=== PATIENT | female | born 1975 | race African-American/Black ===

== ENCOUNTER 2017-01-18 10:38 | Emergency (ER) | payer BC, OTHER ==
[2017-01-18] MEDS ORDERED: DIAZEPAM 5 MG TABLET PO ONE (11:40)
--- NOTE | 2017-01-18 11:41 | ER Document Report ---
ED Medical Screen (RME) - General Chief Complaint: Jaw Pain Stated Complaint: MOUTH PAIN Notes: 41-year-old female patient yawned this morning and dislocated the left TMJ. Last time this happened was about 2 years ago. She was seen here in 2011 for the same thing. I have greeted and performed a rapid initial assessment of this patient. A comprehensive ED assessment and evaluation of the patient, analysis of test results and completion of the medical decision making process will be conducted by additional ED providers. TRAVEL OUTSIDE OF THE [place] IN LAST 30 DAYS: No - Related Data Allergies/Adverse Reactions: No Known Allergies Allergy (Verified 01/18/17 11:09) Home Medications: Current Home Medications Ergocalciferol (Vitamin D2) [Vitamin D2] 50,000 unit PO Q7D 01/18/17 [History] Omeprazole [Omeprazole] 40 mg PO DAILY 01/18/17 [History] Past Medical History - Past Medical History Cardiac Medical History: Reports: Hx Hypertension Renal/ Medical History: Denies: Hx Peritoneal Dialysis - Immunizations Hx Diphtheria, Pertussis, Tetanus Vaccination: Yes Physical Exam - Vital signs Vitals: Temp Pulse Resp BP Pulse Ox 98.8 F 97 18 159/93 H 99 01/18/17 11:11 01/18/17 11:11 01/18/17 11:11 01/18/17 11:11 01/18/17 11:11 Course - Vital Signs Vital signs: Temp Pulse Resp BP Pulse Ox 98.8 F 97 18 159/93 H 99 01/18/17 11:11 01/18/17 11:11 01/18/17 11:11 01/18/17 11:11 01/18/17 11:11
--- NOTE | 2017-01-18 12:21 | ER Document Report ---
ED Oral Problem - General Chief Complaint: Jaw Pain Stated Complaint: MOUTH PAIN Mode of Arrival: Ambulatory Information source: Patient TRAVEL OUTSIDE OF THE [place] IN LAST 30 DAYS: No - HPI Patient complains to provider of: Jaw pain Onset: This morning Associated symptoms: denies: Chills, Fever, Tongue swelling, Unable to swallow Worsened by: Other - Movement Relieved by: Nothing Similar symptoms previously: Yes Notes: Patient arrives with complaints of possible jaw dislocation. She yawned at work around 9 AM in the left side of her jaw popped out and she was unable to close her mouth. She states that she's had this happen to her in the past. She denies any traumatic injury. She denies any fever. She denies difficulty breathing or swallowing. She denies any nausea, vomiting, diarrhea. No rash. She denies any unilateral numbness tingling or weakness. No blood thinners, no other complaints at this time. - Related Data Allergies/Adverse Reactions: No Known Allergies Allergy (Verified 01/18/17 11:09) Home Medications: Current Home Medications Ergocalciferol (Vitamin D2) [Vitamin D2] 50,000 unit PO Q7D 01/18/17 [History] Omeprazole [Omeprazole] 40 mg PO DAILY 01/18/17 [History] Past Medical History - Social History Smoking Status: Unknown if Ever Smoked Family History: Reviewed & Not Pertinent Patient has suicidal ideation: No Patient has homicidal ideation: No - Past Medical History Cardiac Medical History: Reports: Hx Hypertension Renal/ Medical History: Denies: Hx Peritoneal Dialysis - Immunizations Hx Diphtheria, Pertussis, Tetanus Vaccination: Yes Review of Systems - Review of Systems -: Yes All other systems reviewed and negative Physical Exam - Vital signs Vitals: Temp Pulse Resp BP Pulse Ox 98.8 F 97 18 159/93 H 99 01/18/17 11:11 01/18/17 11:11 01/18/17 11:11 01/18/17 11:11 01/18/17 11:11 - General General appearance: Appears well, Alert - HEENT Head: Normocephalic, Atraumatic Eyes: Normal Ears: Normal Mouth/Lips: Other - Patient has an obvious mandibular dislocation on the left. Has mild tenderness to palpation over this area. Unable to fully close her mouth. Remainder of her exam is unremarkable. - Respiratory Respiratory status: No respiratory distress Breath sounds: Normal - Cardiovascular Rhythm: Regular Heart sounds: Normal auscultation Murmur: No - Extremities General upper extremity: Normal inspection, Nontender, Normal color, Normal ROM , Normal temperature General lower extremity: Normal inspection, Nontender, Normal color, Normal ROM , Normal temperature, Normal weight bearing. No: Nereyda's sign - Neurological Neuro grossly intact: Yes Cognition: Normal Orientation: AAOx4 Daphney Coma Scale Eye Opening: Spontaneous [place] Coma Scale Verbal: Oriented [place] Coma Scale Motor: Obeys Commands [place] Coma Scale Total: 15 Speech: Normal Motor strength normal: LUE, RUE, LLE, RLE Sensory: Normal - Psychological Associated symptoms: Normal affect, Normal mood - Skin Skin Temperature: Warm Skin Moisture: Dry Skin Color: Normal Course - Re-evaluation Re-evalutation: 01/18/17 12:20 Patient's nontoxic appearing with stable vitals. The patient yawned at work around 9 AM and dislocated the left TMJ. There is no trauma. Was able to reduce the TMJ dislocation using the syringe method with a 10 mL syringe. Patient down on a 10 mL syringe and rolled the syringe between her teeth and the dislocation was reduced. The patient then had full range of motion of the jaw. I urged her to avoid yawning or opening her mouth largely for the next several weeks. Follow-up for increased pain, fever, difficulty breathing or swallowing, or any further concerns. The patient is noted to have elevated blood pressure during today's emergency department visit. The patient was informed of this finding. The patient was instructed that this may be related to pre-hypertension and requires further evaluation with a primary care provider. The patient has no hypertensive symptoms at this time. The patient's emergency department workup and current diagnosis were explained to the patient and or family. Follow-up instructions were provided. Medications if prescribed were discussed. Instructions for when to return to the emergency department including specific worrisome symptoms were discussed with the patient and/or family. - Vital Signs Vital signs: Temp Pulse Resp BP Pulse Ox 98.8 F 97 18 159/93 H 99 01/18/17 11:11 01/18/17 11:11 01/18/17 11:11 01/18/17 11:11 01/18/17 11:11 Procedures - Joint Reduction/Fracture Care left TMJ Consent obtained: Yes Reduction attempts: 1 Complications: No Notes: 01/18/17 12:21 Left TMJ dislocation reduced using a syringe method. The patient hit down on a 10 mL syringe and rolled the syringe between her teeth, this caused spontaneous reduction of the dislocation. The patient in full range of motion of the jaw post reduction. No pain. No Occasions. Discharge - Discharge Clinical Impression: Closed dislocation of jaw Qualifiers: Encounter type: initial encounter Qualified Code(s): S03.00XA - Dislocation of jaw, unspecified side, initial encounter Disposition: HOME, SELF-CARE Instructions: Jaw Dislocation ([facility]) Additional Instructions: Take medications as needed. Apply ice to sore area. Avoid yawning or opening her mouth wide to eat something for the next several weeks. Follow-up for increased pain, fever, swelling, difficulty breathing or swallowing, or any further concerns. Your blood pressure was elevated during today's visit. Have this rechecked with your doctor. Prescriptions: Diclofenac Sodium [Voltaren] 75 mg PO BID #20 tablet.dr Forms: Elevated Blood Pressure
[2017-01-18 12:43] VITALS: BP 148/101
== END 2017-01-18 12:34 | disposition home or self-care (01) ==
LOC: ER 10:38
PROC: 0RSDXZZ Reposition Left Temporomandibular Joint, External Approach (ICD-10-PCS; principal; 2017-01-18)
DX: S03.02XA Dislocation of jaw, left side, initial encounter (principal); X58.XXXA Exposure to other specified factors, initial encounter; Y93.89 Activity, other specified; Y99.0 Civilian activity done for income or pay; I10 Essential (primary) hypertension
CPT/HCPCS: 99283

== ENCOUNTER 2017-04-27 13:21 | Emergency (ER) | payer OTHER ==
[2017-04-27] MEDS ORDERED: IBUPROFEN 800 MG TABLET PO ONE (13:59)
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
[2017-04-27 15:53] VITALS: BP 158/93
== END 2017-04-27 15:05 | disposition home or self-care (01) ==
LOC: ER 13:21
DX: S16.1XXA Strain of muscle, fascia and tendon at neck level, initial encounter (principal); M79.1 Myalgia; M54.2 Cervicalgia; V87.7XXA Person injured in collision between other specified motor vehicles (traffic), initial encounter; Z87.891 Personal history of nicotine dependence
CPT/HCPCS: 72125; 99283

== ENCOUNTER 2017-12-09 06:30 | Emergency (ER) | payer OTHER ==
[2017-12-09 07:42] LABS: ABSOLUTE BASOPHILS # (AUTO) 0.1 10^3/uL (0.0-0.2); ABSOLUTE EOSINOPHILS # (AUTO) 0.2 10^3/uL (0.0-0.6); ABSOLUTE LYMPHOCYTES (AUTO) 2.5 10^3/uL (0.5-4.7); ABSOLUTE MONOCYTES (AUTO) 0.4 10^3/uL (0.1-1.4); ABSOLUTE NEUT (AUTO) 3.8 10^3/uL (1.7-8.2); BASOPHILS % (AUTO) 0.9 % (0-2); EOSINOPHILS % (AUTO) 2.5 % (0-6); HEMATOCRIT 37.4 % (36.0-47.0); HEMOGLOBIN 12.6 g/dL (12.0-15.5); LYMPHOCYTES % (AUTO) 35.6 % (13-45); MEAN CORPUSCULAR HEMOGLOBIN 30.3 pg (27.0-33.4); MEAN CORPUSCULAR HGB CONC 33.7 g/dL (32.0-36.0); MEAN CORPUSCULAR VOLUME 90 fl (80-97); MONOCYTES % (AUTO) 6.2 % (3-13); PLATELET COUNT 293 10^3/uL (150-450); RED BLOOD COUNT 4.15 10^6/uL (3.72-5.28); RED CELL DISTRIBUTION WIDTH 13.8 % (11.5-14.0); SEGMENTED NEUTROPHILS % (AUTO) 54.8 % (42-78); TOTAL CELLS COUNTED % (AUTO) 100 %
[2017-12-09 07:43] LABS: APPEARANCE,URINE CLOUDY; BILIRUBIN,URINE NEGATIVE (NEGATIVE); COLOR,URINE YELLOW; GLUCOSE, URINE NEGATIVE (NEGATIVE); KETONES,URINE NEGATIVE (NEGATIVE); LEUKOCYTE ESTERASE,URINE MODERATE (NEGATIVE); NITRITE,URINE NEGATIVE (NEGATIVE); PROTEIN,URINE NEGATIVE (NEGATIVE); URINE SPECIFIC GRAVITY 1.029
[2017-12-09] MEDS ORDERED: KETOROLAC TROMETHAMINE INJ/PF 30 MG/1 ML SDV IV PRN (07:45)
--- NOTE | 2017-12-09 07:45 | ER Document Report ---
ED General - General Chief Complaint: Abdominal Pain Stated Complaint: FLANK PAIN Time Seen by Provider: 12/09/17 06:35 Notes: 42-year-old female to emergency department complaining of right lower quadrant abdominal pain and bloating. Patient states that she has "fibroids". Had a embolectomy done in 2016 for a large fibroid that was reportedly "under her breast". States that over the last several days she has had increased abdominal swelling, bloating and pain in the abdomen. Pain is mostly sharp in the right lower quadrant. Had a normal bowel movement this morning. No nausea. No vomiting. No fever. No loss of appetite. No weight loss. No significant weight gain. Any pain in the legs. No pain in the eyes, ears nose , throat, chest. No difficulty breathing. No other associated signs or symptoms at this time. TRAVEL OUTSIDE OF THE [place] IN LAST 30 DAYS: No - HPI Onset/Duration: Gradual Severity: Moderate Pain Level: 2 Associated symptoms: None - Related Data Allergies/Adverse Reactions: No Known Allergies Allergy (Verified 04/27/17 14:41) Past Medical History - General Information source: Patient - Social History Smoking Status: Never Smoker Cigarette use (# per day): No Frequency of alcohol use: Occasional Drug Abuse: None Lives with: Family Family History: Arthritis, CAD, CVA, DM, Hyperlipidemia, Hypertension, Malignancy, Thyroid Disfunction Patient has suicidal ideation: No Patient has homicidal ideation: No - Past Medical History Cardiac Medical History: Reports: Hx Hypertension Renal/ Medical History: Denies: Hx Peritoneal Dialysis Musculoskeltal Medical History: Reports Hx Arthritis, Reports Hx Musculoskeletal Trauma Past Surgical History: Reports: Hx Abdominal Surgery - embolization of abdominal fibroid - Immunizations Immunizations up to date: Yes Hx Diphtheria, Pertussis, Tetanus Vaccination: Yes Review of Systems - Review of Systems Constitutional: denies: Chills, Diaphoresis, Fever, Malaise EENT: denies: Double vision, Ear pain, Nose pain, Difficulty swallowing, Throat swelling Cardiovascular: denies: Chest pain, Palpitations, Heart racing Respiratory: denies: Cough, Hurts to breathe, Short of breath, Wheezing Gastrointestinal: Abdominal pain. denies: Diarrhea, Nausea, Vomiting, Constipation Genitourinary: Flank pain. denies: Burning, Dysuria, Discharge Female Genitourinary: denies: , Vaginal discharge, Vaginal bleeding Musculoskeletal: denies: Back pain, Gout, Joint pain Skin: denies: Lesions, Rash Hematologic/Lymphatic: denies: Anemia, Blood clots, Easy bleeding, Easy bruising Neurological/Psychological: denies: Depression, Anxiety, Weakness, Lost consciousness, Headaches, Numbness Physical Exam - Vital signs Vitals: Temp Pulse Resp BP Pulse Ox 98.3 F 89 18 173/101 H 99 12/09/17 06:37 12/09/17 06:37 12/09/17 06:37 12/09/17 06:37 12/09/17 06:37 Interpretation: Normal - General General appearance: Appears well, Alert - HEENT Head: Normocephalic, Atraumatic Eyes: Normal Pupils: PERRL - Respiratory Respiratory status: No respiratory distress Chest status: Nontender Breath sounds: Normal Chest palpation: Normal - Cardiovascular Rhythm: Regular Heart sounds: Normal auscultation Murmur: No - Abdominal Inspection: Normal Distension: Distended, Other - She does have quite distended abdomen. Uncertain whether this is her baseline or not. Bowel sounds: Normal Tenderness: Tender, Other - Tenderness noted in the right lower quadrant. Organomegaly: No organomegaly - Back Back: Normal, Nontender - Extremities General upper extremity: Normal inspection, Nontender, Normal color, Normal ROM , Normal temperature General lower extremity: Normal inspection, Nontender, Normal color, Normal ROM , Normal temperature, Normal weight bearing. No: Nereyda's sign - Neurological Neuro grossly intact: Yes Cognition: Normal Orientation: AAOx4 Holliday Coma Scale Eye Opening: Spontaneous Holliday Coma Scale Verbal: Oriented Daphney Coma Scale Motor: Obeys Commands Daphney Coma Scale Total: 15 Speech: Normal Motor strength normal: LUE, RUE, LLE, RLE Sensory: Normal - Psychological Associated symptoms: Normal affect, Normal mood - Skin Skin Temperature: Warm Skin Moisture: Dry Skin Color: Normal Course - Re-evaluation Re-evalutation: 12/09/17 07:44 She reportedly having some right lower quadrant pain. Distention. Does have a large round abdomen. History of questionable tumors that required embolectomies. Will do CT abdomen. We will get basic labs will reassess. 12/09/17 11:23 Patient has a large mass seen in her pelvis. Possibly malignant. Radiating from her ovary on the right. Consulted with swine extension field specialist here. Recommends transferring. Will attempt fine transport at this time. Patient requested [facility] however they are currently on divert and expected 3 day wait time. Will attempt to contact another facility. 12/09/17 11:25 Laboratory 12/09/17 12/09/17 12/09/17 06:55 06:55 07:33 WBC 7.0 RBC 4.15 Hgb 12.6 Hct 37.4 MCV 90 MCH 30.3 MCHC 33.7 RDW 13.8 Plt Count 293 Seg Neutrophils % 54.8 Lymphocytes % 35.6 Monocytes % 6.2 Eosinophils % 2.5 Basophils % 0.9 Absolute Neutrophils 3.8 Absolute Lymphocytes 2.5 Absolute Monocytes 0.4 Absolute Eosinophils 0.2 Absolute Basophils 0.1 Sodium Potassium Chloride Carbon Dioxide Anion Gap BUN Creatinine Est GFR ( Amer) Est GFR (Non-Af Amer) Glucose Calcium Total Bilirubin Direct Bilirubin Neonat Total Bilirubin Neonat Direct Bilirubin Neonat Indirect Bili AST ALT Alkaline Phosphatase Total Protein Albumin Lipase Urine Color YELLOW Urine Appearance CLOUDY Urine pH 5.0 Ur Specific [place] 1.029 Urine Protein NEGATIVE Urine Glucose (UA) NEGATIVE Urine Ketones NEGATIVE Urine Blood NEGATIVE Urine Nitrite NEGATIVE Urine Bilirubin NEGATIVE Urine Urobilinogen 2.0 H Ur Leukocyte Esterase MODERATE H Urine WBC (Auto) 5 Urine RBC (Auto) 2 Squamous Epi Cells Auto 55 Urine Mucus (Auto) FEW Urine Ascorbic Acid NEGATIVE Urine HCG, Qual NEGATIVE 12/09/17 07:33 WBC RBC Hgb Hct MCV MCH MCHC RDW Plt Count Seg Neutrophils % Lymphocytes % Monocytes % Eosinophils % Basophils % Absolute Neutrophils Absolute Lymphocytes Absolute Monocytes Absolute Eosinophils Absolute Basophils Sodium 141.5 Potassium 4.2 Chloride 109 H Carbon Dioxide 23 Anion Gap 10 BUN 13 Creatinine 0.81 Est GFR ( Amer) > 60 Est GFR (Non-Af Amer) > 60 Glucose 97 Calcium 9.6 Total Bilirubin 0.3 Direct Bilirubin 0.3 Neonat Total Bilirubin Not Reportable Neonat Direct Bilirubin Not Reportable Neonat Indirect Bili Not Reportable AST 19 ALT 27 Alkaline Phosphatase 48 Total Protein 7.1 Albumin 4.1 Lipase 69.3 Urine Color Urine Appearance Urine pH Ur Specific [place] Urine Protein Urine Glucose (UA) Urine Ketones Urine Blood Urine Nitrite Urine Bilirubin Urine Urobilinogen Ur Leukocyte Esterase Urine WBC (Auto) Urine RBC (Auto) Squamous Epi Cells Auto Urine Mucus (Auto) Urine Ascorbic Acid Urine HCG, Qual Abdomen/Pelvis CT 12/09/17 07:22 IMPRESSION: 1. 27 cm mass that appears to be emanating from the right ovary. 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 2. Mild hydronephrosis of the left kidney, likely due to partial obstruction from the large pelvic mass. 3. The appendix is not discretely identified, however no inflammatory changes in the presumed area of the appendix are present. 12/09/17 13:10 Spoke with gynecological oncologist at [facility] as well as at [facility]. Dr. Newman at [facility]. at [facility]. Specialist feel that this is a slow-growing, nonneoplastic tumor. The physician at [facility] did review the images obtained and did not feel this patient needed immediate surgery. Patient 's creatinine is normal. Patient is eating and drinking. Having normal urination as well as bowel movements. I agree with the specialist consult. Patient will need to follow-up this week with outpatient follow-up for outpatient surgery planning. Patient is comfortable with this plan. Both [facility] as well as [facility] are planning on calling the patient. Patient will decide which facility she would like to go to. - Vital Signs Vital signs: Temp Pulse Resp BP Pulse Ox 98.3 F 89 18 173/101 H 99 12/09/17 13:03 12/09/17 06:37 12/09/17 13:03 12/09/17 06:37 12/09/17 13:03 - Laboratory Result Diagrams: 12/09/17 07:33 12/09/17 07:33 Laboratory results interpreted by me: 12/09/17 12/09/17 06:55 07:33 Chloride 109 H Urine Urobilinogen 2.0 H Ur Leukocyte Esterase MODERATE H Discharge - Discharge Clinical Impression: Ovarian mass, right Condition: Good Disposition: HOME, SELF-CARE Instructions: Pelvic Pain ([facility]) Additional Instructions: The CT scan revealed a large mass in the pelvis. This will need urgent follow- up. Please expect phone calls from both [facility] as well as [facility]. They will discuss outpatient follow -up this next week for possible surgery next week. If you develop any worsening symptoms, severe pain, decreased urination, inability to have a bowel movement, intractable vomiting or intractable pain please return. Referrals: ISAI CAMPOS MD [Primary Care Provider] - Follow up as needed JUAN NEWMAN DO [NO LOCAL MD] - Follow up in 3-5 days
[2017-12-09 08:05] LABS: ALANINE AMINOTRANSFERASE 27 U/L (9-52); ALBUMIN 4.1 g/dL (3.5-5.0); ALKALINE PHOSPHATASE 48 U/L (38-126); ANION GAP 10 (5-19); ASPARTATE AMINO TRANSFERASE 19 U/L (14-36); BILIRUBIN,DIRECT 0.3 mg/dL (0.0-0.4); BILIRUBIN,TOTAL 0.3 mg/dL (0.2-1.3); BLOOD UREA NITROGEN 13 mg/dL (7-20); CALCIUM 9.6 mg/dL (8.4-10.2); CARBON DIOXIDE 23 mmol/L (22-30); CHLORIDE 109 mmol/L (98-107); GLUCOSE 97 mg/dL (75-110); LIPASE 69.3 U/L (23-300); POTASSIUM 4.2 mmol/L (3.6-5.0); SODIUM 141.5 mmol/L (137-145); TOTAL PROTEIN 7.1 g/dL (6.3-8.2)
--- NOTE | 2017-12-09 10:43 | RADIOLOGY REPORT (SQ) ---
EXAM DESCRIPTION: CT ABD/PELVIS WITH IV ORAL COMPLETED DATE/TIME: 12/09/2017 10:13 am REASON FOR STUDY: ABD pain, RLQ, bloating COMPARISON: None. TECHNIQUE: CT scan of the abdomen and pelvis performed using helical scanning technique with dynamic intravenous contrast injection. No oral contrast. Images reviewed with lung, soft tissue, and bone windows. Reconstructed coronal and sagittal MPR images reviewed. Delayed images for evaluation of the urinary system also acquired. All images stored on PACS. All CT scanners at this facility use dose modulation, iterative reconstruction, and/or weight based d osing when appropriate to reduce radiation dose to as low as reasonably achievable (ALARA). [facility]: Dose Right [facility]: CareDose [facility]: Dose Right [facility]: Teradose 4D [facility]: [employer] CONTRAST TYPE AND DOSE: contrast/concentration: Isovue 370.00 mg/ml; Total Contrast Delivered: 94.0 ml; Total Saline Delivered: 71.0 ml RENAL FUNCTION: None required. The patient is less than 50 years old. RADIATION DOSE: CT Rad equipment meets quality standard of care and radiation dose reduction techniq ues were employed. CTDIvol: 14.8 - 17.6 mGy. DLP: 1726 mGy-cm.. LIMITATIONS: None. FINDINGS: LOWER CHEST: No significant findings. No nodules or infiltrates. LIVER: Normal size. No masses. No dilated ducts. SPLEEN: Normal size. No focal lesions. PANCREAS: No masses. No significant calcifications. No adjacent inflammation or peripancreatic fluid collections. Pancreatic duct not dilated. GALLBLADDER: No identified stones by CT criteria. No inflammatory changes to suggest cholecystitis. ADRENAL GLANDS: No significant masses or asymmetry. RIGHT KIDNEY AND URETER: No solid masses. No significant calcifications. No hydronephrosis or hyd roureter. LEFT KIDNEY AND URETER: No solid masses. No significant calcifications. Subtle dilatation of the left renal collecting system. AORTA AND VESSELS: No aneurysm. No dissection. Renal arteries, SMA, celiac without stenosis. RETROPERITONEUM: No retroperitoneal adenopathy, hemorrhage or masses. BOWEL AND PERITONEAL CAVITY: There is a moderate amount of free fluid within the abdominal cavity. APPENDIX: Not visualized. PELVIS: There is a large mass that appears to be emanating from the right ovary and extending into th e abdominal cavity. This mass measures 27 x 18 x 21 cm and produces significant mass effect on the s urrounding structures. The mass has cystic and solid components. The left ovary and uterus appear t o be normal. ABDOMINAL WALL: No masses. No hernias. BONES: No significant or acute findings. OTHER: No other significant finding. IMPRESSION: 1. 27 cm mass that appears to be emanating from the right ovary. 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 2. Mild hydronephrosis of the left kidney, likely due to partial obstruction from the large pelvic m ass. 3. The appendix is not discretely identified, however no inflammatory changes in the presumed area o f the appendix are present. TECHNICAL DOCUMENTATION: JOB ID: [id number] Quality ID # [id number]: Final reports with documentation of one or more dose reduction techniques (e.g., Au tomated exposure control, adjustment of the mA and/or kV according to patient size, use of iterative reconstruction technique) 2010 [employer]- All Rights Reserved Reading location - IP/workstation name: [email or web address]
[2017-12-09] MEDS ORDERED: FENTANYL CITRATE INJ/PF 100 MCG/2 ML AMPUL IV PRN (11:26)
[2017-12-09] MEDS ORDERED: DEXTROSE 5%-1/2 NORMAL SALINE 1,000 ML IV ONE (11:26)
[2017-12-09 13:23] VITALS: BP 164/98
== END 2017-12-09 13:23 | disposition home or self-care (01) ==
LOC: ER 06:30
DX: N83.9 Noninflammatory disorder of ovary, fallopian tube and broad ligament, unspecified (principal); R10.31 Right lower quadrant pain; N13.30 Unspecified hydronephrosis; I10 Essential (primary) hypertension; Z98.890 Other specified postprocedural states
CPT/HCPCS: 36415; 74177; 80053; 81001; 81025; 83690; 85025; 87086; 87088; 96360; 99284